=== PATIENT | male | born 1995 | race African-American/Black ===

== ENCOUNTER 2019-05-12 07:33 | Emergency (ER) | payer OTHER ==
--- NOTE | 2019-05-12 07:52 | ED Physician Documentation ---
PD HPI LOWER EXT INJURY - Stated complaint Stated Complaint: RT FOOT PX - Chief complaint Chief Complaint: Trauma Ext - History obtained from History obtained from: Patient (Patient is 24-year-old male man with no medical history presented to the emergency room with tenderness to the right lateral ankle. Patient was playing basketball and rolled it inverted. There is no other injury. No distal numbness. Reasonable good range of motion. No swelling to the area yet. GCS 15. Alert and oriented x3.) - History of Present Illness PD HPI LOW EXT INJURY LOCATION: Right, Ankle Type of injury: Twist Timing - duration: Days (1) Timing - details: Abrupt onset, Still present Review of Systems Ten Systems: 10 systems reviewed and negative Constitutional: reports: Reviewed and negative Eyes: reports: Reviewed and negative Ears: reports: Reviewed and negative Nose: reports: Reviewed and negative Throat: reports: Reviewed and negative Cardiac: reports: Reviewed and negative Respiratory: reports: Reviewed and negative GI: reports: Reviewed and negative : reports: Reviewed and negative Skin: reports: Reviewed and negative Musculoskeletal: reports: Extremity pain, Joint pain, Pain with weight bearing Neurologic: reports: Reviewed and negative Psychiatric: reports: Reviewed and negative Endocrine: reports: Reviewed and negative Immunocompromised: reports: Reviewed and negative PD PAST MEDICAL HISTORY - Past Medical History Past Medical History: No Cardiovascular: None Respiratory: None Neuro: None Endocrine/Autoimmune: None GI: None : None HEENT: None Psych: None Musculoskeletal: None Derm: None - Past Surgical History Past Surgical History: No - Allergies Allergies/Adverse Reactions: Allergies Allergy/AdvReac Type Severity Reaction Status Date / Time No Known Drug Allergies Allergy Verified 05/12/19 07:39 - Social History Does the pt smoke?: No Smoking Status: Never smoker Does the pt drink ETOH?: Yes Does the pt have substance abuse?: No - Immunizations Immunizations are current?: Yes - POLST Patient has POLST: No PD ED PE NORMAL - Vitals Vital signs reviewed: Yes - General General: Alert and oriented X 3, No acute distress - HEENT HEENT: Atraumatic, PERRL, EOMI, Ears normal - Neck Neck: Supple, no meningeal sign - Cardiac Cardiac: RRR, No murmur - Respiratory Respiratory: No respiratory distress, Clear bilaterally - Abdomen Abdomen: Normal bowel sounds, Soft, Non tender, Non distended - Derm Derm: Warm and dry - Extremities Extremities: Other (Tenderness to the lateral right ankle on palpation, range of motion, mild edema,) - Neuro Neuro: Alert and oriented X 3 Eye Opening: Spontaneous Motor: Obeys Commands Verbal: Oriented GCS Score: 15 - Psych Psych: Normal mood, Normal affect Results - Vitals Vitals: Vital Signs - 24 hr 05/12/19 07:40 Temperature 36.8 C Heart Rate 80 Respiratory 18 Rate Blood Pressure 122/64 O2 Saturation 98 Oxygen O2 Source Room air - Rads (name of study) No standard instances Radiology: Other (X-ray of the right ankle shows no evidence of fracture or dislocation) PD MEDICAL DECISION MAKING - ED course ED course: 24-year-old sprained his right ankle. X-ray shows no evidence of fracture or dislocation. This information is disclosed to him. Perry wrap applied. He will be given light duty for the next 3 to 5 days for recovery. Take ibuprofen as needed for pain. Departure - Departure Disposition: 01 Home, Self Care Clinical Impression: Right ankle sprain Qualifiers: Encounter type: initial encounter Involved ligament of ankle: unspecified ligament Qualified Code(s): S93.401A - Sprain of unspecified ligament of right ankle, initial encounter Condition: Stable Instructions: ED Sprain Ankle Comments: Please follow-up with your primary care doctor in 7 days for reevaluation. If there is point tenderness at about that time may need to have repeat x-ray to rule out hairline fracture that is missed today. Take ibuprofen as needed for pain every 6 hours, Apply ice as needed Forms: Activity restrictions
--- NOTE | 2019-05-12 08:12 | XRAY Report ---
Reason: ankle pain Procedure Date: 05/12/2019 Accession Number: [id number] / [id number] Procedure: XR - Ankle 3 View RT CPT Code: Final Report FULL RESULT: EXAM: RIGHT ANKLE RADIOGRAPHY EXAM DATE: 05/12/2019 07:43 AM. CLINICAL HISTORY: Ankle pain. COMPARISON: None. TECHNIQUE: 3 views. FINDINGS: Bones: No fracture or focal bony lesion. Joints: No evidence of dislocation. Soft Tissues: No unexpected soft tissue findings. IMPRESSION: No evidence of fracture or dislocation. [facility]
[2019-05-12] MEDS ORDERED: IBUPROFEN 600 MG TABLET PO STA (08:19)
[2019-05-12 08:37] VITALS: BP 136/71
== END 2019-05-12 08:37 | disposition home or self-care (01) ==
LOC: ED 07:33
DX: S93.401A Sprain of unspecified ligament of right ankle, initial encounter (principal); X50.1XXA Overexertion from prolonged static or awkward postures, initial encounter; Y93.67 Activity, basketball; Y92.310 Basketball court as the place of occurrence of the external cause
CPT/HCPCS: 73610; 99283; 99284; A9270